=== PATIENT | female | born 1980 | race Caucasian/White ===

== ENCOUNTER → 2018-10-23 | Outpatient (CLI) | payer OTHER | LOC: MC.RAD 10:45 | DX: Z12.31 Encounter for screening mammogram for malignant neoplasm of breast (principal) ==

== ENCOUNTER → 2020-07-27 | Outpatient (CLI) | payer BC | LOC: MC.RAD 16:03 | DX: Z12.31 Encounter for screening mammogram for malignant neoplasm of breast (principal) ==

== ENCOUNTER 2021-08-19 18:09 | Emergency (ER) | payer BC ==
[~2021-08-19] VITALS: Ht 170.2 cm; Wt 87.3 kg
[2021-08-19 19:25] VITALS: BP 128/78; PULSE 76
== END 2021-08-19 19:25 | disposition home or self-care (01) ==
LOC: COL.ER 18:09
DX: R05.9 Cough, unspecified (principal)

== ENCOUNTER → 2021-09-22 | Outpatient (CLI) | payer BC | LOC: MC.RAD 08:07 | DX: Z12.31 Encounter for screening mammogram for malignant neoplasm of breast (principal) ==

== ENCOUNTER → 2022-10-19 | Outpatient (CLI) | payer BC | LOC: MC.RAD 08:44 | DX: Z12.31 Encounter for screening mammogram for malignant neoplasm of breast (principal) ==

== ENCOUNTER → 2022-10-23 | Outpatient (CLI) | payer BC | LOC: MC.RAD 10:52 | DX: R92.8 Other abnormal and inconclusive findings on diagnostic imaging of breast (principal) ==